=== PATIENT | male | born 1990 | race American Indian/Alaskan Native ===

== ENCOUNTER 2017-01-13 21:59 | Emergency (ER) | payer SELFPAY ==
--- NOTE | 2017-01-13 22:49 | XRay Report ---
FINAL REPORT PROCEDURE: XR HUMERUS 2 RT TECHNIQUE: Right humerus, two views HISTORY: lac, glass. RIGHT HUMERUS pain, send for report COMPARISON: No prior studies are available for comparison. FINDINGS: There is a soft tissue laceration. No acute fracture or dislocation is seen. No radiopaque foreign body is visible. IMPRESSION: No radiopaque foreign body is visible
[2017-01-14] MEDS ORDERED: VALIUM PO ONE (01:28)
[2017-01-14] MEDS ORDERED: NORCO 7.5/325 PO ONE (01:28)
[2017-01-14] MEDS ORDERED: NACL 0.9% IR ONE (02:02)
--- NOTE | 2017-01-14 02:02 | Emergency Department Report ---
- General Chief Complaint: Wound/Laceration Stated Complaint: L ARM LACERATION Time Seen by Provider: 01/14/17 01:27 Source: patient Mode of arrival: Ambulatory Limitations: No Limitations - History of Present Illness Initial Comments: 26-year-old male from [facility] comes in with right arm laceration. Patient reports he was playing soccer lead on some glass. He denies any past medical history currently takes no medication and has no known drug allergies. He reports that his last tetanus shot was a few weeks ago. -: hour(s) (1 ) Location: other Extremity Location: Right: Arm Place: outdoors Patient Tetanus UTD: Yes Context: accidental Associated Symptoms: none - Related Data Previous Rx's Medication Instructions Recorded Last Taken Type Acetaminophen/Codeine [Tylenol 1 tab PO Q6H PRN #15 tab 01/14/17 Unknown Rx /Codeine # 3 tab] Cephalexin [Keflex] 500 mg PO QID #40 capsule 01/14/17 Unknown Rx Allergies Allergy/AdvReac Type Severity Reaction Status Date / Time No Known Allergies Allergy Verified 01/13/17 22:08 ED Review of Systems ROS: Stated complaint: L ARM LACERATION Other details as noted in HPI Constitutional: denies: chills, fever Eyes: denies: eye pain, eye discharge, vision change ENT: denies: ear pain, throat pain Respiratory: denies: cough, shortness of breath, wheezing Cardiovascular: denies: chest pain, palpitations Endocrine: no symptoms reported Gastrointestinal: denies: abdominal pain, nausea, diarrhea Genitourinary: denies: urgency, dysuria Musculoskeletal: denies: back pain, joint swelling, arthralgia Skin: other ED Past Medical Hx - Past Medical History Previous Medical History?: No Hx Tuberculosis: No - Surgical History Past Surgical History?: No - Social History Smoking Status: Never Smoker Substance Use Type: None - Medications Home Medications: Home Medications Medication Instructions Recorded Confirmed Last Taken Type Acetaminophen/Codeine [Tylenol 1 tab PO Q6H PRN #15 tab 01/14/17 Unknown Rx /Codeine # 3 tab] Cephalexin [Keflex] 500 mg PO QID #40 capsule 01/14/17 Unknown Rx ED Physical Exam - General Limitations: No Limitations (laceration to the right upper arm) General appearance: alert, in no apparent distress - Head Head exam: Present: atraumatic, normocephalic - Eye Eye exam: Present: normal appearance - ENT ENT exam: Present: mucous membranes moist - Neck Neck exam: Present: normal inspection - Respiratory Respiratory exam: Present: normal lung sounds bilaterally. Absent: respiratory distress - Cardiovascular Cardiovascular Exam: Present: regular rate, normal rhythm. Absent: systolic murmur, diastolic murmur, rubs, gallop - GI/Abdominal GI/Abdominal exam: Present: soft, normal bowel sounds - Skin Skin exam: Present: warm - Other Other exam information: 4 cm laceration until the muscle. Muscle was lacerated as well. Patient's able to move all extensor able to pronate and supinate touch fingers with thumb all able to make a fist able to bring hand to chest and chin. Full range of motion. Able to visualize muscle. ED Course Vital Signs 01/13/17 22:09 Temperature 98.9 F Pulse Rate 102 H Respiratory 20 Rate Blood Pressure 137/86 [Right] O2 Sat by Pulse 100 Oximetry - Laceration /Wound Repair Right Upper Arm Wound Location: upper extremity Wound Length (cm): 4 Wound's Depth, Shape: into muscle Wound Explored: clean Irrigated w/ Saline (ccs): 500 Betadine Prep?: Yes Anesthesia: Lidocaine w/ Epi Volume Anesthetic (ccs): 20 Wound Debrided: moderate Wound Repaired With: sutures Suture Size/Type: 5:0, proline Number of Sutures: 14 Layer Closure?: Yes Deep Layer Suture Size/Type: 3:0, gut Number Deep Layer Sutures: 4 Sterile Dressing Applied?: Yes Progress: Patient tolerated procedure very well. ED Medical Decision Making - Medical Decision Making Patient's been evaluated by this provider in fast track. Also had patient evaluated by Dr Carter. The patient we will give him pain medication and to relax him so were able to suture. Patient verbalized understanding. The patient I will place him on antibiotics for him to return in about 7-10 days for suture removal. He verbalized understanding Critical care attestation.: If time is entered above; I have spent that time in minutes in the direct care of this critically ill patient, excluding procedure time. ED Disposition Clinical Impression: Laceration of right upper arm Qualifiers: Encounter type: initial encounter Qualified Code(s): S41.111A - Laceration without foreign body of right upper arm, initial encounter Clinical Impression: (Ruled Out): Laceration of muscle, fascia and tendon of triceps, right arm, subsequent encounter Disposition: DISCHARGED TO HOME OR SELFCARE Is pt being admited?: No Does the pt Need Aspirin: No Condition: Stable Instructions: Suture Care (ED), Laceration (ED), Absorbable Suture Care (ED) Additional Instructions: These return to emergency room for suture removal within 10-14 days. Complete antibiotics as prescribed. Return to the emergency room sooner if there is any signs of infection such as fever or chills. Purulent discharge red swelling to the site. Prescriptions: Acetaminophen/Codeine [Tylenol /Codeine # 3 tab] 1 tab PO Q6H PRN #15 tab PRN Reason: Pain Cephalexin [Keflex] 500 mg PO QID #40 capsule Referrals: PRIMARY CARE, [Primary Care Provider] - 3-5 Days Forms: Work/School Release Form(ED)
[2017-01-14] MEDS ORDERED: XYLOCAINE 1%/ EPI 1:100,000 INFILTRATI ONE (02:14)
[2017-01-14 03:13] VITALS: BP 120/78
== END 2017-01-14 03:15 | disposition home or self-care (01) ==
LOC: ED 21:59
DX: S41.111A Laceration without foreign body of right upper arm, initial encounter (principal); W25.XXXA Contact with sharp glass, initial encounter; Y93.66 Activity, soccer; Y99.8 Other external cause status; Y92.89 Other specified places as the place of occurrence of the external cause